=== PATIENT | male | born 1970 | race Caucasian/White ===

== ENCOUNTER 2018-07-30 15:56 | Emergency (ER) | payer BC ==
[2018-07-30 16:09] VITALS: TEMP 98.2; BMI 30.8
--- NOTE | 2018-07-30 16:11 | PDOC ---
Rapid Medical Evaluation Time Seen by Provider: 07/30/18 16:06 Medical Evaluation: 07/30/18 16:06 I have performed a brief in-person evaluation of this patient. The patient presents with a chief complaint of: CP today, since resolved. No SOB , diaphoresis, n/v, palpitations, leg pain/swelling. Denies pmhx, non-smoker, no illicit drug use. No cardiac w/u in past per pt Pertinent physical exam findings:Stable and well amara w/ clear chest/lungs I have ordered the following:ekg/cxr/labs The patient will proceed to the ED for further evaluation. Discharge Disposition - Diagnosis Chest pain Qualifiers: Chest pain type: unspecified Qualified Code(s): R07.9 - Chest pain, unspecified - Referrals - Patient Instructions - Post Discharge Activity
--- NOTE | 2018-07-30 16:21 | PDOC ---
History of Present Illness - General Chief Complaint: Chest Pain Stated Complaint: CHEST PAIN Time Seen by Provider: 07/30/18 16:06 History Source: Patient Exam Limitations: No Limitations - History of Present Illness Initial Comments: 07/30/18 16:32 47 year old male with no PMH presented to ED for chest pain x20 minutes beginning just prior to 1600. Pt stated he is currently chest pain free. Pt stated the pain began while he was walking around the office, located to her center chest, radiating to his back, no alleviating or aggravating factors. Pt admitted to diaphoresis and shortness of breath at the time of symptoms. Pt denied fever, chills, nausea, vomiting. Allergies: NKDA Past History - Past Medical History Allergies/Adverse Reactions: Allergies Allergy/AdvReac Type Severity Reaction Status Date / Time No Known Allergies Allergy Verified 07/30/18 16:06 COPD: No - Immunization History Immunization Up to Date: Yes - Suicide/Smoking/Psychosocial Hx Smoking History: Never smoked Hx Alcohol Use: No Drug/Substance Use Hx: No Review of Systems - Review of Systems Able to Perform ROS?: Yes Comments:: 07/30/18 16:35 General: denied fever, chills, generalized weakness. HEENT: denied sore throat, rhinorrhea, ear pain. Heart: admitted to chest pain, diaphoresis. denied palpitations, syncope. Respiratory: denied shortness of breath, cough, sputum production, hemoptysis. Abdomen: denied abdominal pain, nausea, vomiting, diarrhea, constipation, blood in stool. : denied dysuria, increased urinary frequency, hematuria, urinary incontinence , flank pain. Back: admitted to back pain. Musculoskeletal: denied joint pain, muscle pain, joint swelling. Neurological: denied headache, dizziness, numbness, tingling, weakness. Skin: denied rash, laceration, abrasion. *Physical Exam - Vital Signs Last Vital Signs Temp Pulse Resp BP Pulse Ox 98.2 F 148/93 98 07/30/18 16:07 07/30/18 16:07 07/30/18 16:07 - Physical Exam Comments: 07/30/18 16:35 Constitutional: Well-nourished, Well-developed, appearing stated age. HEENT: head is normocephalic, atraumatic. EOMI. PERRLA. Neck: supple. Full ROM. Heart: regular rhythm. no murmurs, rubs or gallops. Lungs: clear to auscultation bilaterally. no crackles, rhonchi or wheezing. no stridor. Abdomen: soft, nontender. normal bowel sounds. no rebound, guarding, masses. Extremities: peripheral pulses intact. no lower extremity edema. Neurological: CN 2-12 grossly intact. moves all four extremities. Psych: awake, alert, oriented x3. follows commands. answers questions appropriately. ED Treatment Course - LABORATORY CBC & Chemistry Diagram: 07/30/18 16:29 07/30/18 16:29 Medical Decision Making - Medical Decision Making 07/30/18 16:35 47 year old male with no PMH, negative family cardiac history presented to ED for chest pain x20 minutes, now resolved. Initial Vital Signs Temp BP Pulse Ox 98.2 F 148/93 98 07/30/18 16:07 07/30/18 16:07 07/30/18 16:07 Afebrile. No tachycardia. Mild hypertension. Labs ordered: CBC, BMP, troponin Medications ordered: ASA 324 chew Imaging ordered: CXR EKG performed at 1552: rate 75, regular rhythm, normal axis, normal intervals, flipped T in III, otherwise no acute ST changes. 07/30/18 16:39 CBC WBC 8.1 K/mm3 (4.0-10.0) 07/30/18 16:29 RBC 4.62 M/mm3 (4.00-5.60) 07/30/18 16:29 Hgb 13.7 GM/dL (11.7-16.9) 07/30/18 16:29 Hct 41.0 % (35.4-49) 07/30/18 16:29 MCV 88.8 fl (80-96) 07/30/18 16:29 MCH 29.8 pg (25.7-33.7) 07/30/18 16:29 MCHC 33.5 g/dl (32.0-35.9) 07/30/18 16:29 RDW 13.7 % (11.9-15.9) 07/30/18 16:29 Plt Count 270 K/MM3 (134-434) 07/30/18 16:29 MPV 8.2 fl (7.5-11.1) 07/30/18 16:29 Absolute Neuts (auto) 5.0 K/mm3 (1.5-8.0) 07/30/18 16:29 Neutrophils % 62.2 % (42.8-82.8) 07/30/18 16:29 Lymphocytes % 31.3 % (8-40) 07/30/18 16:29 Monocytes % 5.3 % (3.8-10.2) 07/30/18 16:29 Eosinophils % 0.6 % (0-4.5) 07/30/18 16:29 Basophils % 0.6 % (0-2.0) 07/30/18 16:29 Nucleated RBC % 0 % (0-0) 07/30/18 16:29 No leukocytosis. No anemia. 07/30/18 17:10 CMP Sodium 139 mmol/L (136-145) 07/30/18 16:29 Potassium 3.9 mmol/L (3.5-5.1) 07/30/18 16:29 Chloride 106 mmol/L (98-107) 07/30/18 16:29 Carbon Dioxide 28 mmol/L (21-32) 07/30/18 16:29 Anion Gap 5 MMOL/L (8-16) L 07/30/18 16:29 BUN 16 mg/dL (7-18) 07/30/18 16:29 Creatinine 1.2 mg/dL (0.55-1.3) 07/30/18 16:29 Est GFR (CKD-EPI)AfAm 82.96 07/30/18 16:29 Est GFR (CKD-EPI)NonAf 71.58 07/30/18 16:29 Random Glucose 95 mg/dL (74-106) 07/30/18 16:29 Calcium 8.9 mg/dL (8.5-10.1) 07/30/18 16:29 Troponin I < 0.02 ng/ml (0.00-0.05) 07/30/18 16:29 No electrolyte abnormalities. No YULIANA. Troponin within normal limits. -Pending repeat CXR my view: sharp costophrenic angles. no widened mediastinum. no infiltrate. no large pneumothorax. -Pending official report 07/30/18 20:25 Pt reassessed, reported no recurrence of chest pain. 07/30/18 20:30 Repeat troponin within normal limits. CK normal. Pt informed of results. Pt informed of need to follow up with PCP and cardiology. Pt given cardiology referrals. Disposition: discharged Discharge medications: none Vital Signs Pulse Rate 68 07/30/18 21:02 Respiratory Rate 18 07/30/18 21:02 Blood Pressure 137/99 07/30/18 21:02 O2 Sat by Pulse Oximetry (%) 96 07/30/18 21:02 No tachycardia. No tachypnea. Mild hypertension. Improved from prior. No hypoxia on room air. *DC/Admit/Observation/Transfer Diagnosis at time of Disposition: Chest pain Qualifiers: Chest pain type: unspecified Qualified Code(s): R07.9 - Chest pain, unspecified - Discharge Dispostion Condition at time of disposition: Improved Decision to Admit order: No - Referrals Referrals: Taco Marvin MD [Staff Physician] - Han Phoenix MD [Staff Physician] - Zachery Chaudhari MD [Staff Physician] - Anil Laboy MD [Staff Physician] - Tam Beauchamp MD [Staff Physician] - Jocelyne Dewitt MD [Staff Physician] - Cam Garner MD [Staff Physician] - - Patient Instructions Additional Instructions: You were seen today for chest pain. Your EKG was normal. Your lab work was normal. Follow up with a primary care doctor within 2-3 days. I have provided you with a referral to our clinic system. Follow up with a ballistics teacher within 2-3 days. I have provided you with multiple referrals. Return to the Emergency Department for chest pain, shortness of breath, palpitations, vomiting, severe back pain, lightheadedness like you may pass out , passing out, coughing up blood, swelling in your calf, fever or any other new , worsening or concerning symptoms. - Post Discharge Activity Forms/Work/School Notes: Back to Work
[2018-07-30 16:37] LABS: BASO % 0.6 % (0-2.0); EOS % 0.6 % (0-4.5); HEMOGLOBIN 13.7 GM/dL (11.7-16.9); LYMPH % 31.3 % (8-40); MCH 29.8 pg (25.7-33.7); MCHC 33.5 g/dl (32.0-35.9); MEAN CELL VOLUME 88.8 fl (80-96); MEAN PLT VOLUME 8.2 fl (7.5-11.1); MONO % 5.3 % (3.8-10.2); NEUT % 62.2 % (42.8-82.8); PLATELET COUNT 270 K/MM3 (134-434); RBC 4.62 M/mm3 (4.00-5.60); RDW 13.7 % (11.9-15.9); WHITE BLOOD COUNT 8.1 K/mm3 (4.0-10.0)
[2018-07-30] MEDS ORDERED: ASPIRIN 81 MG CHEWABLE TABLETS PO ONE (16:37)
[2018-07-30] MEDS ORDERED: ASPIRIN 81 MG CHEWABLE TABLETS ONE (16:42)
[2018-07-30 16:57] LABS: ANION GAP 5 MMOL/L (8-16); BLOOD UREA NITROGEN 16 mg/dL (7-18); CALCIUM 8.9 mg/dL (8.5-10.1); CHLORIDE 106 mmol/L (98-107); CO2 28 mmol/L (21-32); CREATININE 1.2 mg/dL (0.55-1.3); GLUCOSE,RANDOM 95 mg/dL (74-106); POTASSIUM 3.9 mmol/L (3.5-5.1); SODIUM 139 mmol/L (136-145)
--- NOTE | 2018-07-30 20:59 | PDOC ---
Documentation entered by Anuel Kwok SCRIBE, acting as scribe for Ebony Mayberry MD. Ebony Mayberry MD: This documentation has been prepared by the Rissa landeros Xhesika, SCRIBE, under my direction and personally reviewed by me in its entirety. I confirm that the documentation accurately reflects all work, treatment, procedures, and medical decision making performed by me. Attending Attestation - Resident Resident Name: Shannon Mckeon - [facility] HPI: 07/30/18 17:35 The patient is a 47 year old male with no significant past medical history of who presents to our ED with chest pain that began at 4pm. The patient states he was walking around his office at the onset of his pain. The patient states he endorsed a episode of L back pain that radiated to his chest, lasted 20 min but has since self resolved. The patient states he endorsed diaphoresis and SOB at the time of symptoms, however, he denies any symptoms now. Patient states he has not seen a PCP in 5 years. The patient denies any family history of cardiac disease, however, his 25 year old daughter has diabetes (insulin dependent). The patient denies shortness of breath or dizziness. The patient denies fever, chills, nausea, diarrhea or constipation. The patient denies dysuria, frequency, urgency or hematuria. Allergy: NKDA Surgical History: None reported Social History: former smoker (quit 20 years ago) - Physicial Exam PE: 07/30/18 17:44 GENERAL: Awake, alert, and fully oriented, in no acute distress HEAD: No signs of trauma EYES: PERRLA, EOMI, sclera anicteric, conjunctiva clear ENT: Auricles normal inspection, hearing grossly normal, nares patent, oropharynx clear without exudates. Moist mucosa NECK: Normal ROM, supple, no lymphadenopathy, JVD, or masses LUNGS: Breath sounds equal, clear to auscultation bilaterally. No wheezes, and no crackles HEART: Regular rate and rhythm, normal S1 and S2, no murmurs, rubs or gallops ABDOMEN: Soft, nontender, normoactive bowel sounds. No guarding, no rebound. No masses EXTREMITIES: Normal range of motion, no edema. No clubbing or cyanosis. No cords, erythema, or tenderness NEUROLOGICAL: Cranial nerves II through XII grossly intact. Normal speech, normal gait SKIN: Warm, Dry, normal turgor, no rashes or lesions noted. - Medical Decision Making 07/30/18 17:51 47-year-old male with no significant past medical history had an episode of back pain that radiated to his front and resolved after about 20 minutes. He was walking in his office at this time. Past medical history denies any significant medical problems. Social history he was a cigarette smoker but quit 20 years ago. No family members with a history of early cardiac demise. EKG is normal sinus rhythm with shows left ventricular hypertrophy 07/30/18 18:08 pt received aspirin plan repeat troponin repeat [id number] 07/30/18 20:58 second troponin is negative,pt asymptomatic imp atypical chest pain plan follow up with PCP for echo and outpt stress test
[2018-07-30 21:04] VITALS: BP 137/99; PULSE 68
--- NOTE | 2018-07-31 12:09 | EKG ---
Test Reason : Blood Pressure : / mmHG Vent. Rate : 075 BPM Atrial Rate : 075 BPM P-R Int : 150 ms QRS Dur : 084 ms QT Int : 390 ms P-R-T Axes : 022 005 012 degrees QTc Int : 435 ms NORMAL SINUS RHYTHM MINIMAL VOLTAGE CRITERIA FOR LVH, MAY BE NORMAL VARIANT BORDERLINE ECG NO PREVIOUS ECGS AVAILABLE Confirmed by MD Lior, Robert ([id number]) on 07/31/2018 12:09:00 PM Referred By: Confirmed By:Robert Tinajero MD
== END 2018-07-30 21:04 | disposition home or self-care (01) ==
LOC: JER 15:56
DX: R07.9 Chest pain, unspecified (principal)
CPT/HCPCS: 36415; 71046-TC-FY; 80048; 82550; 84484; 85025; 93005; 93010; 99283-25